=== PATIENT | female | born 2000 | race Hispanic/Latino ===

== ENCOUNTER 2025-08-14 17:09 | Emergency (ER) | payer SELFPAY ==
[~2025-08-14] VITALS: Ht 152.4 cm; Wt 58.1 kg
--- NOTE | 2025-08-14 17:19 | NUR ---
TC TO POISON CONTROL, RECCOMMEND, IRRIGATE EYE FOR COMFORT, FLUORESCENE STAIN IF NEEDED, POSSIBLY FOLLOW UP W/ OPTAMOLOGY IF EYE EXAM ABNORMAL, CASE # [id number]
[2025-08-14 17:29] VITALS: BP 146/90; PULSE 93; RESP 16; TEMP 98.6; O2SAT 100
[2025-08-14] MEDS: TETRACAINE HCL 0.5% 4 ML OPHTH SOLN OP ONE (18:09)
--- NOTE | 2025-08-14 18:22 | ERN ---
ED Note History of Present Illness Stated Complaint: LEFT EYE IRRITATION Chief Complaint: Eye Problems Time Seen by MD: 17:11 Dictation: 25-year-old female presents to ER states she was at work and some cleaning solution fell in her eye. Complaints of burning to left eye. States she did do eye wash for about 10 minutes while at work. Poison control called by triage in ER Allergies: Coded Allergies: No Known Allergies (Unverified Allergy, Unknown, 08/14/25) Home Meds Active Scripts Erythromycin Base (Erythromycin) 5 Mg/Gram (0.5 %) Oint...g., 1 APPL OP BID for 5 Days, #15 GM 0 Refills apply 1 cm ribbon into left eye lower conjunctival sac Prov:TORY ISRAEL NP 08/14/25 Past Medical History Past Medical History: No Pertinent History Surgical History: None LMP: Aug 11, 2025 Review of System Dictation CONSTITUTIONAL: NEGATIVE FOR FEVER,CHILLS, AND WEIGHT LOSS EYES: NEGATIVE FOR INJURY, PAIN,REDNESS, AND DISCHARGE ENT: Positive for left eye injury CARDIOVASCULAR: NEGATIVE FOR CHEST PAIN, PALPITATIONS, AND EDEMA RESPIRATORY: NEGATIVE FOR SHORTNESS OF BREATH, COUGH, WHEEZING, AND PLEURITIC CHEST PAIN ABDOMEN/GI: NEGATIVE FOR ABDOMINAL PAIN, NAUSEA, VOMITING AND DIARRHEA. BACK: NEGATIVE FOR PAIN OR INJURY : NEGATIVE FOR INJURY, BLEEDING AND DISCHARGE MS/EXTREMITY: NEGATIVE FOR INJURY AND DEFORMITY SKIN: NEGATIVE FOR RASH, AND DISCOLORATION NEURO: NEGATIVE FOR HEADACHE, WEAKNESS, NUMBNESS, TINGLING, AND SEIZURE PSYCH: NEGATIVE FOR SUICIDE IDEATION, HOMICIDAL IDEATION, AND HALLUCINATIONS ALLERGY/IMMUNOLOGY: NEGATIVE FOR HIVES, RASH, AND ALLERGIES ALL SYSTEMS NEGATIVE, EXCEPT NOTED ABOVE. 13 POINT REVIEW OF SYSTEMS ASSESSED AND ALL NEGATIVE EXCEPT FOR ABOVE. Initial Vital Sign VS Vital Signs Date Time Temp Pulse Resp B/P (MAP) Pulse Ox O2 Delivery O2 Flow Rate FiO2 08/14/25 17:11 98.6 93 16 146/90 100 Room Air 0 08/14/25 17:29 21 Physical Exam Dictation General: awake, alert, NAD Head/Face: Normocephalic, atraumatic Eyes: PERRL, EOMI, vision at baseline, redness to left eye sclera, negative abrasion ENT: oral cavity clear, TMs clear, no signs of infection Neck: Trachea midline, supple, no nuchal rigidity Cardiovascular: RRR, normal S1/S2, No MRGs, no JVD Respiratory: CTAB, no respiratory distress, No rales or wheezes Abdomen: Soft, non-tender, non-distended, normal bowel sounds, no guarding or rebound. Skin: Warm, dry, normal turgor, no rash MS/Extremity: Pulses equal, no cyanosis, neurovascular intact, FROM Neuro: COAx4, GCS 15, strength 5/5, CN 2-12 intact, normal cerebellar exam, normal gait, Psych: Normal behavior, mood, and affect normal ED Course ED Course Orders Procedure Category Date Status Time Tetracaine Hcl PHA 08/14/25 Complete (Pontocaine 0.5% 18:00 Visual Acuity Test CPOE 08/14/25 Transmitted (Er) 17:38 *Nursing CPOE 08/14/25 Transmitted Communication: 17:40 Current Medications Medications (Trade) Dose Ordered Sig/Scott Route PRN Reason Start Time Stop Time Status Last Admin Dose Admin Tetracaine HCl (Pontocaine 0.5% Ophth Soln) 1 drop ONCE ONCE OP 08/14/25 18:00 08/14/25 18:01 DC 08/14/25 18:09 Vital Signs Date Time Temp Pulse Resp B/P (MAP) Pulse Ox O2 Delivery O2 Flow Rate FiO2 08/14/25 17:29 98.6 93 16 146/90 100 Room Air* 0 21 08/14/25 17:11 98.6 93 16 146/90 100 Room Air 0 Medical Decision Making MDM MDM: Differential diagnosis: Corneal abrasion, eye irritation, foreign body and I Rationale: Tests considered and ordered secondary to shared decision making include: labs, ECG and radiology Previous outside records reviewed: Old ER visits. Risk of complication and/or morbidity or mortality of patient management: None Medications-Per medication reconciliation Need for hospitalization: Patient does NOT meet criteria for hospitalization. Need for emergency major/minor surgery: No There are no social concerns with this patient. Prescription drug management Prescriptions will include symptomatic care Patient's prior external medical records from other ER visits were reviewed by me as indicated. Prior testing and results from previous visits were reviewed. Prior tests were taken into account with medical decision making and resource utilization, independent historian/historians were used to obtain complete medical history. I independently interpreted the test that were performed, results were reviewed by me and considered findings on radiology if ordered. Negative eye stain. DX & DISP Disposition: Discharge Departure Impression: Primary Impression: Foreign body, eye Additional Impression: Eye irritation Condition: Stable Scripts Erythromycin Base (Erythromycin) 5 Mg/Gram (0.5 %) Oint...g. 1 APPL OP BID for 5 Days, #15 GM 0 Refills apply 1 cm ribbon into left eye lower conjunctival sac Prov: TORY ISRAEL NP 08/14/25 Additional Instructions: if You continue to have issues follow up with an group exercise class instructor. FOLLOW-UP WITH YOUR PCP IN 24-72 HOURS AND IN THE EVENT IF SYMPTOMS WORSEN OR AN EMERGENCY OVERNIGHT REPORT TO THE ED IMMEDIATELY Referrals: SELF,REFERRAL (PCP) TORY ISRAEL NP Aug 14, 2025 18:22
[2025-08-14] MEDS ORDERED: ERYT1OIN7 OP (18:30)
== END 2025-08-14 18:32 | disposition home or self-care (01) ==
LOC: EDH 17:09
DX: T15.90XA Foreign body on external eye, part unspecified, unspecified eye, initial encounter (principal); Z79.899 Other long term (current) drug therapy; W44.9XXA Unspecified foreign body entering into or through a natural orifice, initial encounter
CPT/HCPCS: 99283